=== PATIENT | male | born 1985 | race Caucasian/White ===

== ENCOUNTER 2017-12-17 15:41 | Emergency (ER) | payer OTHER, MEDICAID, SELFPAY ==
[2017-12-17] VITALS (10 sets, daily range): BP systolic 98–130; BP diastolic 60–82; PULSE 67–96; RESP 14–20; TEMP 36.8; O2SAT 97–100; BMI 22.8
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
--- NOTE | 2017-12-17 15:57 | DI.CT.S_ITS ---
PROCEDURE: CT CHEST ABD PEL W CON INDICATIONS: pain into left flank and left lateral abdomen TECHNIQUE: After the administration of intravenous contrast, 5 mm thick sections acquired from the lung apices to the symphysis. 2.5 mm thick coronal and sagittal reformats were acquired. Additional 7 mm thick coronal maximum intensity projection (MIP) reformats acquired through the lungs. Optional 10-minute delayed imaging may be performed from the kidneys to the bladder. For radiation dose reduction, the following was used: automated exposure control, adjustment of mA and/or kV according to patient size. COMPARISON: None. FINDINGS: Image quality: Excellent. CHEST: Lungs: No pulmonary contusions or lacerations. No acute airspace opacities. No pneumothorax or hemothorax. Central and peripheral airways appear patent and normal in caliber. Mediastinum: No mediastinal hematomas. Heart size is normal. No pericardial effusion. Thoracic aorta and pulmonary arteries demonstrate normal size and enhancement. No mediastinal or hilar adenopathy. Esophagus is normal in caliber. No hiatal hernia. Chest wall: No rib fractures. No subcutaneous emphysema. No axillary or supraclavicular adenopathy. Thyroid gland appears normal. ABDOMEN: Solid organs: Liver is normal in size and enhancement, without lacerations. Gallbladder appears normal. Biliary system is non-dilated. Pancreas enhances normally, without transection. Spleen is normal in size and enhancement, without lacerations. No adrenal hematomas. The right kidney enhances normally, without hydronephrosis or lacerations. In contrast, there has been a significant traumatic injury to the left kidney especially over its middle and lower thirds. A portion of the lower third medial aspect of the left kidney is devascularized with loss of normal enhancement along the lateral border of the left kidney at that same area there is enhancing cortex. A fracture crosses the posterior aspect of the middle third of the kidney intersecting the renal sinus fat, and more superiorly there is preserved homogeneous enhancement of the renal cortex. A perinephric hematoma is present measuring up to 1.5 cm in thickness laterally and anteriorly and slightly thicker more posteriorly. No active extravasation of densely contrast enhanced blood into the area of renal trauma is found. The renal artery and vein appear patent, no adjacent vascular injury to the aorta or IVC is found. Peritoneum and bowel: No free fluid or air. Unenhanced bowel loops demonstrate normal wall thickness and caliber. Nodes and vessels: No retroperitoneal or mesenteric adenopathy. Aorta and inferior vena cava are normal in size and enhancement. Miscellaneous: No ventral hernias. PELVIS: Genitourinary: Bladder wall thickness is normal. Miscellaneous: No inguinal hernias or adenopathy. Note is made of a L3 left transverse spinous process fracture that appears acute. No vertebral body fracture or traumatic subluxation is seen. Bones: Pelvic ring and hip joints appear intact. No vertebral compression fractures. IMPRESSION: Significant left renal traumatic injury with renal lacerations and a mild perinephric hematoma. No active arterial extravasation at time of CT scanning is seen involving the left kidney. Portions of the lower third of the left kidney especially medially are devascularized, without normal enhancement, but the full extent of traumatic injury to that portion of the kidney will not be established until followup scanning is performed. There is a finding also associated transverse spinous process fracture at L3 on the left, but the spine itself appears stable and free of vertebral body fracture or traumatic subluxation. No spinal or foraminal stenosis is associated. These findings were immediately conveyed personally to the ordering healthcare provider in the emergency room. Dictated by: Alden Valdes M.D. on 12/17/2017 at 16:31 Approved by: Alden Valdes M.D. on 12/17/2017 at 16:41
[2017-12-17] MEDS: HYDROMORPHONE 1 MG INJ IV ×3 (16:07→18:06)
[2017-12-17] MEDS: SODIUM CHLORIDE 0.9% 1,000 ML 1000 ML IV (16:08)
[2017-12-17] MEDS: ONDANSETRON 4 MG/2 ML INJ IV (16:08)
--- NOTE | 2017-12-17 16:42 | DI.RAD.S_ITS ---
PROCEDURE: XR HAND LT MIN 3V INDICATIONS: pain to left hand TECHNIQUE: 3 views of the hand(s) acquired. COMPARISON: None. FINDINGS: Bones: No fractures or dislocations. Carpal bones are normally aligned. No suspicious bony lesions. Soft tissues: No suspicious soft tissue calcifications. IMPRESSION: No trauma Dictated by: Alden Valdes M.D. on 12/17/2017 at 17:39 Approved by: Alden Valdes M.D. on 12/17/2017 at 17:39
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
[2017-12-17 16:59] LABS: Add Manual Diff / Slide Review NO; Basophils Percent Auto 0.2 % (0-2); Eosinophils Percent Auto 0.1 % (2-4); Hematocrit 41.4 % (41-53); Hemoglobin 13.9 g/dL (13.5-17.5); Lymphocytes Percent Auto 6.3 % (25-40); Mean Corpuscular HGB Conc 33.6 % (30-36); Mean Corpuscular Hemoglobin 29.4 PG (26-34); Mean Corpuscular Volume 87.7 fL (80-100); Monocytes Percent Auto 6.2 % (3-14); Neutrophils Absolute Auto 14600 /uL (3000-5900); Neutrophils Percent Auto 87.2 % (50-75); Platelet Count 278 X10^3/uL (150-400); Red Blood Cell Count 4.72 X10^6/uL (4.5-5.9); Red Cell Distribution Width 13.2 % (11.6-14.8); White Blood Cell Count 16.7 X10^3/uL (4.5-11.0)
[2017-12-17 17:18] LABS: Alanine Aminotransferase 32 IU/L (21-72); Albumin 4.5 g/dL (3.5-5.0); Albumin Globulin Ratio 1.8 (1.0-2.8); Alkaline Phosphatase 61 U/L (38-126); Aspartate Aminotransferase 36 IU/L (17-59); BUN Creatinine Ratio 12.7 (6-22); Bilirubin Total 0.4 mg/dL (0.2-1.3); Blood Urea Nitrogen 14 mg/dL (9-20); Calcium 8.9 mg/dL (8.4-10.2); Carbon Dioxide 25 mmol/L (22-32); Chloride 99 mmol/L (98-107); Estimated Glomerular Filt Rate > 60.0 mL/min (>60); Globulin 2.5 g/dL (1.7-4.1); Glucose 89 mg/dL (70-100); HEMOLYSIS 15 (0-50); Sodium 137 mmol/L (137-145)
[2017-12-17 17:34] LABS: Bacteria Urine None Seen
[2017-12-17 17:36] LABS: Appearance Urine UA CLEAR; Bilirubin Urine UA NEGATIVE (NEGATIVE); Color Urine UA RED; Glucose Urine UA NEGATIVE (Normal); Ketones Urine UA 1+ (NEGATIVE); Leukocyte Esterase Urine UA TRACE (NEGATIVE); Nitrite Urine UA POSITIVE (Negative); Occult Blood Urine UA 3+ (Negative); Protein Urine UA 2+ (Negative); Urobilinogen Urine UA 0.2 E.U./dL (0.2); pH Urine UA 8.5 (4.5-8.0)
[2017-12-17 17:51] LABS: Lactate (Lactic Acid) 1.2 mmol/L (0.7-2.1)
[2017-12-17 17:59] LABS: Culture Indicated Urine Specimen Cultured; RBC Urine 30-100/HPF (0-5/HPF); WBC Urine 10-30/HPF (0-5/HPF)
[2017-12-17] MEDS: SODIUM CHLORIDE 0.9% 1,000 ML 150 ML IV (18:06)
== END 2017-12-17 19:30 | disposition short-term general hospital (02) ==
PROVIDERS: Emergency Provider Nurse Practitioner Family
DX: S37.032A Laceration of left kidney, unspecified degree, initial encounter (principal); V86.56XA Driver of dirt bike or motor/cross bike injured in nontraffic accident, initial encounter
CPT/HCPCS: 51701; 71260; 73130; 74177; 80053; 81001; 83605; 85025; 86850; 86900; 86901; 87086; 96361; 96374; 96375; 96376; 99285; J1170; J2405; Q9967